=== PATIENT | male | born 1980 | race Caucasian/White ===

== ENCOUNTER 2020-05-09 12:14 | Emergency (ER) | payer BC ==
[2020-05-09 12:27] VITALS: BP 134/69; PULSE 65; BMI 23.0
== END 2020-05-09 15:20 | disposition home or self-care (01) ==
LOC: JER 12:14
DX: S09.90XA Unspecified injury of head, initial encounter (principal); S20.212A Contusion of left front wall of thorax, initial encounter; W19.XXXA Unspecified fall, initial encounter
CPT/HCPCS: 70450-TC; 71046-TC-FY; 71101-TC-LT-FY; 99284-25